=== PATIENT | male | born 2000 | race American Indian/Alaskan Native ===

== ENCOUNTER 2022-10-11 08:03 | Emergency (ER) | payer OTHER ==
--- NOTE | 2022-10-11 08:36 | ED Physician Documentation ---
PD HPI ABD PAIN - Stated complaint Stated Complaint: STOMACH PX - Chief complaint Chief Complaint: Abd Pain - History obtained from History obtained from: Patient - History of Present Illness Timing - onset: How many hours ago (few hours ago, onset of lUQ/epigastric area pain, worse with movement and deep breathing, and causing some feeling of dyspnea. No vomiting nor diarhea.He states he had tripped footing while walking quickly up stairs uyeer and struckleft side/abd/chest but did not notice much pain then.), Today Timing - duration: Hours Timing - details: Abrupt onset, Still present Quality: Aching, Sharp, Pain Location: Epigastric, LUQ Radiation: Left flank Improved by: Laying still. No: Eating Worsened by: Moving, Breathing, Palpation. No: Eating Associated symptoms: Nausea, Near syncope / syncope (he states he did feel lightheaded at times this morning.), Loss of appetite (this morning). No: Fever, Vomiting, Diarrhea, Constipation Review of Systems Constitutional: denies: Fever, Chills Nose: denies: Rhinorrhea / runny nose, Congestion Throat: denies: Sore throat Cardiac: reports: Chest pain / pressure. denies: Palpitations, Pedal edema, Calf pain Respiratory: denies: Cough, Wheezing GI: reports: Abdominal Pain, Nausea, Vomiting : denies: Dysuria, Discharge Skin: denies: Rash, Lesions PD PAST MEDICAL HISTORY - Past Medical History Past Medical History: Yes Cardiovascular: None Respiratory: None Neuro: Other Endocrine/Autoimmune: None GI: None : None HEENT: None Psych: Anxiety Musculoskeletal: None Derm: None - Past Surgical History Past Surgical History: No - Present Medications Home Medications: Ambulatory Orders Medication Instructions Recorded Confirmed Diclofenac Sodium 1% Gel [Voltaren 1 applic TOP PRN PRN 10/11/22 10/11/22 Gel] HYDROcod/ACETAM 5/325 [[facility] 5/325] 1 ea PO Q6H PRN #18 tablet 10/11/22 Ibuprofen [Motrin] 600 mg PO TID PRN #20 tab 10/11/22 Ondansetron Odt [Zofran] 4 mg TL Q6H PRN #10 tablet 10/11/22 Sertraline [Zoloft] 50 mg PO DAILY 10/11/22 10/11/22 - Allergies Allergies/Adverse Reactions: Allergies Allergy/AdvReac Type Severity Reaction Status Date / Time No Known Drug Allergies Allergy Verified 10/11/22 08:07 - Social History Does the pt smoke?: No Smoking Status: Never smoker Does the pt drink ETOH?: Yes Does the pt have substance abuse?: No - Immunizations Immunizations are current?: Yes PD ED PE NORMAL - Vitals Vital signs reviewed: Yes - General General: Alert and oriented X 3, Well developed/nourished, Other (hedoes appear uncomfortable with guarded breathing and stilted movement of trunk.) - Neck Neck: Supple, no meningeal sign, No adenopathy - Cardiac Cardiac: RRR, No murmur - Respiratory Respiratory: Clear bilaterally, Other (mild to moderate tenderness lower costal margin, but has much more tenderness with guarding lUQ abdomen.) - Abdomen Abdomen: Normal bowel sounds, Soft, Non distended, No organomegaly Results - Vitals Vitals: Vital Signs - 24 hr 10/11/22 10/11/22 10/11/22 08:08 08:22 12:31 Temperature 36.6 C Heart Rate 69 69 56 L Respiratory 18 18 16 Rate Blood Pressure 125/65 124/70 107/56 L O2 Saturation 100 100 100 Oxygen O2 Source Room air - Labs Labs: Laboratory Tests 10/11/22 10/11/22 10/11/22 08:09 09:11 09:11 WBC 13.6 H RBC 4.92 Hgb 15.2 Hct 43.8 MCV 89.0 MCH 30.9 MCHC 34.7 RDW 12.0 Plt Count 186 MPV 9.8 Neut # (Auto) 11.2 H Lymph # (Auto) 1.0 L [place] # (Auto) 1.0 Eos # (Auto) 0.2 Baso # (Auto) 0.1 Absolute Nucleated RBC 0.00 Nucleated RBC % 0.0 Sodium 139 Potassium 4.1 Chloride 101 Carbon Dioxide 31 Anion Gap 7.0 BUN 9 Creatinine 0.8 Estimated GFR (MDRD) 121 Glucose 76 Calcium 9.1 Total Bilirubin 0.8 AST 21 ALT 25 Alkaline Phosphatase 60 Total Protein 7.3 Albumin 4.5 Globulin 2.8 Albumin/Globulin Ratio 1.6 Lipase 35 Urine Color YELLOW Urine Clarity CLEAR Urine pH 7.0 Ur Specific [place] 1.015 Urine Protein NEGATIVE Urine Glucose (UA) NEGATIVE Urine Ketones NEGATIVE Urine Occult Blood NEGATIVE Urine Nitrite NEGATIVE Urine Bilirubin NEGATIVE Urine Urobilinogen 0.2 (NORMAL) Ur Leukocyte Esterase NEGATIVE Ur Microscopic Review NOT INDICATED Urine Culture Comments NOT INDICATED - Rads (name of study) abd/pelvic CT Radiology: Prelim report reviewed (no aucte organ injury seen. Mild mesenteric adenopathy noted. ), EMP read indepedently, See rad report PD Medical Decision Making - ED course Complexity details: reviewed results (pain is improved but still present after meds iv of pain meds and antiemetic. Toradol as well.), considered differential (abrupt pain LUQ/epigastric area but breathing deeply causes pain. He had tripped on steps and struck that area yesterday. He had had splenic injury as child that healed without surgical need. I don't think this is any consequence from that prior injury years ago.), d/w patient Reviewed Lab Results: no signs of rib fracture, splenic inury, acute abd process. He does have pain there, so presume some soft tissue tenderness and pain. To see if tapers into today. Off work today and tomorrow. Social Determinants of Health: works for [employer], so will have him take off work today and tomorrow. ED course: no acute organ injury on CT scan. Will presume soft tissue contusion with pain, to include even potential diaphragm strain. NO signs of rupture on CT. Departure - Departure Disposition: 01 Home, Self Care Clinical Impression: Left upper quadrant abdominal pain Fall from slip, trip, or stumble Qualifiers: Encounter type: initial encounter Qualified Code(s): W01.0XXA - Fall on same level from slipping, tripping and stumbling without subsequent striking against object, initial encounter Abdominal muscle strain Qualifiers: Encounter type: initial encounter Qualified Code(s): S39.011A - Strain of muscle, fascia and tendon of abdomen, initial encounter Condition: Stable Record reviewed to determine appropriate education?: Yes Instructions: ED Strain Abdominal Muscle Follow-Up: JEREMIAH PEREZ DO [Primary Care Provider] - Prescriptions: Ibuprofen [Motrin] 600 mg PO TID PRN #20 tab PRN Reason: Pain HYDROcod/ACETAM 5/325 [[facility] 5/325] 1 ea PO Q6H PRN #18 tablet PRN Reason: Pain Ondansetron Odt [Zofran] 4 mg TL Q6H PRN #10 tablet PRN Reason: Nausea / Vomiting Comments: Your CT scan did not show any obvious organ injury. There was a few scattered small lymph nodes so consideration of a mild viral illness or "stomach flu" causing some of this. However I am more inclined to think it relates to the fall that you had with some strain of the muscles. Again no signs of internal bleeding or obvious organ injury nor any lung or rib injuries. That said you can still have pain in there from injury of the soft tissue and even a strain of the muscles including the diaphragm to account for your pain. I would anticipate this improving over the next few days. Rest off work today and tomorrow. Anti-inflammatories such as ibuprofen 3 times daily with food for the next several days to week. Add Tylenol every 4-6 hours if needed for pain or hydrocodone/acetaminophen he if needed for worse pains. Your prescriptions were sent to your [facility] in [place]. I am prescribing a short course of narcotic pain medication for you. These are potentially dangerous and addictive medications that should be used carefully. These medications may constipate you. Take an rnvk-bar-qjufnte stool softener such as docusate twice daily with plenty of water while taking these medi cations. If you go 24 hours without a bowel movement, take halj-xaf-ypsbpvy MiraLAX, per package instructions. Do not drink or drive while taking these medications. If you received narcotic or sedating medications while in the emergency department do not drive for 24 hours. Store this medication in a safe, secure place and out of reach of children. It is a violation of federal law to give or sell this medication to another person or to use in a manner other than prescribed. The ED will not refill narcotic prescriptions, including prescriptions lost or stolen. You can dispose of unwanted medications at the [facility]'s office or at several pharmacies such as [facility] Forms: Activity restrictions Discharge Date/Time: 10/11/22 12:45
[2022-10-11] MEDS ORDERED: SODIUM CHLORIDE 0.9% 1,000 ML IV STA (09:02)
[2022-10-11] MEDS ORDERED: HYDROmorphone 1 MG/ML CARPUJECT IVP STA (09:02)
[2022-10-11] MEDS ORDERED: KETOROLAC 15 MG/ML VIAL IVP STA (09:02)
[2022-10-11] MEDS ORDERED: ONDANSETRON 4 MG/2 ML VIAL IVP STA (09:04)
[2022-10-11 09:18] LABS: BILIRUBIN,URINE NEGATIVE (NEGATIVE); GLUCOSE, URINE (UA) NEGATIVE (NEGATIVE); KETONES,URINE (UA) NEGATIVE (NEGATIVE); LEUKOCYTE ESTERASE, URINE NEGATIVE (NEGATIVE); NITRITE,URINE NEGATIVE (NEGATIVE); OCCULT BLOOD,URINE NEGATIVE (NEGATIVE); PROTEIN,URINE NEGATIVE (NEGATIVE); UROBILINOGEN,URINE 0.2 (NORMAL) E.U./dL (NORMAL)
[2022-10-11] MEDS ORDERED: MAG HYDROX/AL HYDROX/SIMETH 30 ML UDC PO STA (09:20)
[2022-10-11 09:21] LABS: BASOPHILS # (AUTO) 0.1 10^3/uL (0.0-0.1); BASOPHILS % (AUTO) 0.4 %; EOSINOPHILS # (AUTO) 0.2 10^3/uL (0.0-0.7); EOSINOPHILS % (AUTO) 1.5 %; HCT - HEMATOCRIT 43.8 % (42.0-52.0); HGB - HEMOGLOBIN 15.2 g/dL (14.0-18.0); LYMPHOCYTES % (AUTO) 7.7 %; MEAN CORPUSCULAR HEMOGLOBIN 30.9 pg (27.0-31.0); MEAN CORPUSCULAR HGB CONC 34.7 g/dL (32.0-36.0); MEAN PLATELET VOLUME 9.8 fL (7.4-11.4); MONOCYTES % (AUTO) 7.4 %; NEUTROPHILS # (AUTO) 11.2 10^3/uL (1.5-6.6); NEUTROPHILS % (AUTO) 82.8 %; PLT - PLATELET COUNT 186 10^3/uL (130-450); RED BLOOD COUNT 4.92 10^6/uL (4.70-6.10); WHITE BLOOD COUNT 13.6 x10^3/uL (4.8-10.8)
[2022-10-11 09:22] LABS: CLARITY,URINE CLEAR (CLEAR)
[2022-10-11 09:30] LABS: ALBUMIN 4.5 g/dL (3.2-5.5); ALBUMIN/GLOBULIN RATIO 1.6 (1.0-2.2); BILIRUBIN,TOTAL 0.8 mg/dL (0.2-1.0); CALCIUM 9.1 mg/dL (8.5-10.3); CREATININE 0.8 mg/dL (0.6-1.2); POTASSIUM 4.1 mmol/L (3.5-5.0); TOTAL PROTEIN 7.3 g/dL (6.7-8.2)
[2022-10-11] MEDS ORDERED: iohexoL-300 100 ML VIAL ONE (09:37)
--- NOTE | 2022-10-11 09:52 | XRAY Report ---
PROCEDURE: Chest 1 View X-Ray INDICATIONS: chest pain TECHNIQUE: One view of the chest was acquired. COMPARISON: None. FINDINGS: Surgical changes and devices: None. Lungs and pleura: No pleural effusions or pneumothorax. Lungs are clear. Mediastinum: Mediastinal contours appear normal. Heart size is normal. Bones and chest wall: No suspicious bony lesions. Overlying soft tissues appear unremarkable. IMPRESSION: No acute pulmonary process. Reviewed by: lEda Taylor MD on 10/11/2022 9:51 AM [facility] Approved by: Elda Taylor MD on 10/11/2022 9:51 AM [facility] Station ID: [id number]
--- NOTE | 2022-10-11 11:25 | CT Report ---
PROCEDURE: ABDOMEN/PELVIS W INDICATIONS: Abdominal pain, acute, upper abd CONTRAST: 100ml Omnipaque 300 TECHNIQUE: After the administration of IV contrast, 5 mm thick sections acquired from the diaphragms to the symp hysis. 5 mm thick coronal and sagittal reformats were acquired. For radiation dose reduction, the f ollowing was used: automated exposure control, adjustment of mA and/or kV according to patient size. COMPARISON: None. FINDINGS: Image quality: Excellent. ABDOMEN: Lung bases: Lung bases are clear. Heart size is normal. Solid organs: Liver is slightly prominent with steatosis. The spleen is normal in size and enhanceme nt. Gallbladder is unremarkable Biliary system is non dilated. Pancreas enhances normally. No adr enal nodules. Kidneys demonstrate normal size and enhancement, without hydronephrosis. Peritoneum and bowel: Bowel loops demonstrate normal wall thickness and caliber. Appendix is normal without visualized inflammatory change. No free fluid or air. Nodes and vessels: No retroperitoneal or mesenteric adenopathy by size criteria. Scattered subcenti meter lymph nodes are present in the right lower quadrant. Aorta and inferior vena cava are normal in size. Miscellaneous: No ventral hernias. PELVIS: Genitourinary: Bladder wall thickness is normal. Miscellaneous: No inguinal hernias or adenopathy. Bones: No suspicious bony lesions. No vertebral body compression fractures. IMPRESSION: Scattered subcentimeter lymph nodes in the right lower quadrant. Mesenteric adenitis cannot be exclud ed. Reviewed by: Elda Taylor MD on 10/11/2022 11:23 AM PST Approved by: Elda Taylor MD on 10/11/2022 11:23 AM PST Station ID: [id number]
[2022-10-11] MEDS ORDERED: iohexoL-300 100 ML VIAL IVP ONE (11:51)
[2022-10-11] MEDS ORDERED: FAMOTIDINE 20 MG/2 ML VIAL IVP STA (12:15)
[2022-10-11] MEDS ORDERED: HYDROmorphone 1 MG/ML CARPUJECT IM STA (12:15)
[2022-10-11 12:32] VITALS: BP 107/56
== END 2022-10-11 12:45 | disposition home or self-care (01) ==
LOC: ED 08:03
DX: R10.12 Left upper quadrant pain (principal); S39.011A Strain of muscle, fascia and tendon of abdomen, initial encounter; W10.9XXA Fall (on) (from) unspecified stairs and steps, initial encounter; Y93.89 Activity, other specified
CPT/HCPCS: 36415; 71045; 74177; 80053; 81003; 83690; 85025; 96372; 96374; 96375; 99283; 99284; A9270; J1170; Q9967; 81001; 87086